=== PATIENT | female | born 1975 | race Caucasian/White ===

== ENCOUNTER 2017-02-17 18:14 | Inpatient (IN) ==
--- NOTE | 2017-02-17 19:56 | Emergency Department Note ---
Arrival - Arrival Chief Complaint: Fever Stated Complaint: kidney stones/fever ED Nursing Triage Note: C/o bilateral flank pain and fever-onset 3 days ago. States that she has several kidney stones. Mode of Arrival: Ambulatory Time Seen by Provider: 02/17/17 19:23 - History of Present Illness HPI Narrative: This is a 41-year-old white female with a history of migraine headaches, cholecystectomy in October 2016, type 2 diabetes, chronic recurrent kidney stones with previous lithotripsy who presents with 3 days of left flank pain reminiscent of a kidney stone and one day of fever 102 with dysuria. The patient has had no vomiting nor chills. Date of Last Menstrual Period: 2 weeks ago Allergies/Adverse Reactions: Allergies Allergy/AdvReac Type Severity Reaction Status Date / Time Penicillins Allergy Severe Unknown/Unable Verified 10/24/16 09:46 to obtain Home Medications: Home Medications Medication Instructions Recorded Confirmed Type Clorazepate [Tranxene] 3.75 mg PO BID PRN 10/02/14 02/17/17 History Dextroamphetamine/Amphetamine 20 mg PO BID@0700,1400 10/02/14 02/17/17 History [Adderall 10 mg Tablet] Ketorolac Tab [Toradol Tab] 10 mg PO Q6H PRN #20 tablet 10/13/16 02/17/17 Rx Escitalopram [Lexapro] 20 mg PO QAM 10/23/16 02/17/17 History metFORMIN [Glucophage] 850 mg PO DAILY W/BREAKFAST 10/23/16 02/17/17 History Review of System - Review of System Constitutional: Present: fever. Absent: chills Eyes: Absent: redness, vision change Head/Ears/Nose/Throat: Absent: epistaxis, nasal drainage Respiratory: Absent: respiratory distress, wheezing Cardiovascular: Absent: dyspnea on exertion, orthopnea Gastrointestinal: Absent: diarrhea, constipation, hematemesis Genitourinary female: Present: dysuria, frequency Musculoskeletal: Present: lower back pain. Absent: joint swelling, leg pain, neck pain Skin: Absent: change in color, pruritus Neurological: Absent: numbness, paresthesias, confusion Psychiatric: Absent: suicidal thoughts, homicidal thoughts Endocrine: Absent: heat intolerance, polydipsia Hematological/Lymphatic: Absent: easy bruising, lymphadenopathy Allergic/Immunologic: Absent: urticaria, itchy eyes Medical,Surgical,& Family Hx - Medical History Psychological: History of: Anxiety Disorders, ADHD, Depression Neurology: History of: Migraine No history of: Seizures HEENT: History of: Dental Problems (07/2016 Teeth Removed), HEENT Problems ( Sinusitis) Endocrine: History of: Diabetes Mellitus (NIDDM) (Dx 2017 Type II) Respiratory: No history of: Pneumonia (Pneum Vac Jan 2016), Respiratory Problems (Flu Vac Jun 2016) Genitourinary: History of: Kidney Stones Gastrointestinal: History of: GI Problems (N/V Abd Pain-Cholelithiasis) Other: History of: Anesthesia Reactions (Very Nauseated/Vomiting/Migraine Continuing Days past Anesthesia) - Surgical History Thoracic Surgeries: Surgical HX of;: Lithotripsy Abdominal Surgeries: Surgical HX of: Abdominal Surgery, Cholecystectomy Reproductive Surgeries: Surgical HX of;: Section (1994,2000,2002), Genitourinary Surgery, Gynecologic Surgery - Social History Smoking Status: Never smoker Frequency of Alcohol Use: None Type of Drug Use: None Exam Vital Signs: Vital Signs Temperature 102.8 F H 02/17/17 19:00 Pulse Rate 132 H 02/17/17 19:00 Respiratory Rate 17 02/17/17 19:00 Blood Pressure 140/87 02/17/17 19:00 O2 Sat by Pulse Oximetry 96 02/17/17 18:24 - General General appearance: alert - Eye Eye exam: Present: PERRL, EOMI - ENT ENT exam: Present: normal exam, normal oropharynx - Neck Neck exam: Present: normal inspection, full ROM - Chest Chest inspection: Present: normal inspection, symmetric chest wall rise - Respiratory Respiratory exam: Present: normal lung sounds bilaterally - Abdominal Exam Abdominal exam: Present: soft, normal bowel sounds - Extremities Exam Extremities exam: Present: normal inspection, full ROM - Back Exam Back exam: Present: normal inspection, full ROM. Absent: CVA tenderness (R), CVA tenderness (L) - Neurological Exam Neurological exam: Present: alert, oriented X3 - Psychiatric Psychiatric exam: Present: normal affect, normal mood - Skin Skin exam: Present: warm, dry Course Course Narrative: The patient has shaking chills fever or pyuria and a 5 mm left ureteral stone and elevated white count all of which seem to be consistent with pyelonephritis related to an obstructing ureteral stone therefore it seems reasonable patient can be admitted to the hospital for IV antibiotics and urology consultation. The case was discussed with Dr. Murillo the urologist who is going to see the woman in consultation. The case was also discussed with the hospitalist who agreed to admit the patient for fluid resuscitation and intravenous antibiotics as well as pain management Results - Labs CBC & BMP: 02/17/17 19:57 02/17/17 19:57 Disposition Clinical Impression: Pyelonephritis, Ureteral calculus, left Disposition: Still a Patient Additional Instructions: The patient has shaking chills fever or pyuria and a 5 mm left ureteral stone and elevated white count all of which seem to be consistent with pyelonephritis related to an obstructing ureteral stone therefore it seems reasonable patient can be admitted to the hospital for IV antibiotics and urology consultation. The case was discussed with Dr. Murillo the urologist who is going to see the woman in consultation. The case was also discussed with the hospitalist who agreed to admit the patient for fluid resuscitation and intravenous antibiotics as well as pain management
[2017-02-17] MEDS ORDERED: KETOROLAC 30 MG/1 ML VIAL IV STA (19:58)
[2017-02-17] MEDS ORDERED: cefTRIAXone 1,000 MG in SODIUM CHLORIDE 0.9% 100 ML IV STA (19:59)
[2017-02-17] MEDS ORDERED: SODIUM CHLORIDE 0.9% 1,000 ML IV STA ×2 (20:07→22:20)
[2017-02-17] MEDS ORDERED: SODIUM CHLORIDE 0.9% 100 ML IV ONE (20:12)
[2017-02-17] MEDS ORDERED: cefTRIAXone 1,000 MG VIAL ONE (20:12)
[2017-02-17] MEDS ORDERED: KETOROLAC 30 MG/1 ML VIAL ONE (20:12)
[2017-02-17 20:18] LABS: Basophils # 0.1 10*3/uL (0.0-0.2); Basophils % 0.3 % (0.0-0.8); Eosinophils % 0.1 % (0.00-10.9); Hematocrit 38.1 VOL% (35.7-47.0); Hemoglobin 13.2 GM/DL (12.0-16.0); Immature Granulocytes % 0.5 %; Immature Granulocytes Absolute 0.09 #; Lymphocytes # 1.3 10*3/uL (1.4-4.0); Lymphocytes % 7.8 % (21.3-54.2); Mean Corpuscular HGB Conc 34.6 GM/DL (32-36); Mean Corpuscular Hemoglobin 30 PG (27-34); Mean Corpuscular Volume 86.2 FL (87-102); Mean Platelet Volume 10.9 FL (9.6-12.0); Monocytes # 2.2 10*3/uL (0.11-0.8); Monocytes % 13.4 % (1.7-12.7); Neutrophils # 12.9 10*3/uL (1.4-7.4); Neutrophils % 77.9 % (38.7-73.9); Platelet Count 292 T/CUMM (130-400); Red Blood Count 4.42 MC/CUMM (3.8-5.5); Red Cell Distribution Width 12.2 % (9.3-17.3); White Blood Count 16.6 T/CUMM (4-12)
[2017-02-17 20:32] LABS: Albumin 3.7 G/DL (3.4-5.0); Calcium 9.1 MG/DL (8.5-10.1); Osmolality,Calculated 276.8 MOS/KG (273-304); Potassium 3.8 MMOL/L (3.5-5.1); Total Protein 7.2 G/DL (6.4-8.3)
[2017-02-17 20:33] LABS: Apearance,Urine CLOUDY (Clear); Bacteria,Urine Many /HPF (Few); Bilirubin,Urine Negative (Negative); Blood, Urine Small mg/dL (Negative); Glucose,Urine (UA) Negative (Negative); Ketones,Urine Negative (Negative); Mucus,Urine Few /LPF (Occasional); Nitrite,Urine Negative (Negative); Protein,Urine 100 MG/DL; RBC,Urine 42 /HPF (0-4); Squamous Epithelial Cell,Urine Few /HPF (0-10); Urine Color Yellow (Yellow); Urine Specific Gravity 1.013 (1.001-1.035); WBC,Urine 751 /HPF (0-6)
--- NOTE | 2017-02-17 20:52 | CT Report ---
CT abdomen without contrast February 17, 2017 Indication: Left flank pain with hematuria Comparison: October 10, 2016 Technique: Axial CT imaging of the abdomen is performed without intravenous and oral contrast. Findings: Cardiac and lung bases are within normal limits CT abdomen: The liver spleen pancreas and adrenal glands are unremarkable. No evidence of focal lesion is demonstrated in these solid organs. Gallbladder is surgically absent. Bilateral calyceal stones, nonobstructing. There is a 5.5 mm stone within the mid left ureter with moderate to severe hydronephrosis perinephric stranding and mild left nephromegaly. The bowel caliber is normal and no wall thickening or adjacent inflammatory change is seen. Appendix is normal. A few scattered colonic diverticula are noted. No evidence of free fluid or free air is present. Small fat-containing ventral hernia is noted just above the umbilicus. Impression: 1. Left obstructive uropathy with 5.5 mm stone within the mid ureter 2. Bilateral nonobstructing calyceal stones 8. Diverticulosis coli 4. Multiple fat-containing ventral hernia This CT exam was performed using one or more the following dose reduction techniques: Automated exposure control, adjustment of the MA and/or KV according to patient size, or use of iterative reconstruction technique. PROCEDURE INTERPRETED AT [facility] DEPARTMENT OF RADIOLOGY Final Report Signed by: Kirby Lambert
[2017-02-17] MEDS ORDERED: MORPHINE 2 MG/1 ML SYRINGE IV STA (22:20)
[2017-02-17] MEDS ORDERED: ONDANSETRON 4 MG/2 ML VIAL IV STA (22:21)
[2017-02-17] MEDS ORDERED: ONDANSETRON 4 MG/2 ML VIAL ONE (22:25)
[2017-02-17] MEDS ORDERED: MORPHINE 2 MG/1 ML SYRINGE ONE (22:26)
--- NOTE | 2017-02-17 23:05 | Hospitalist History & Physical ---
History of Present Illness Chief complaint: fever and left flank pain History of present illness: Ms. Duenas is a 41 year old female who presents from her preceptor class here to the ER because her preceptor noticed she did not look well. She checked her temperature, and it was 102.4. Patient also has been having 3 days of some left flank pain she describes as constant pressure. Now, it feels like spasms. She also notes some chills that started today. She denies any n/v/diarrhea/ decreased oral intake. She states that she has a history of recurrent nephrolithiasis and has had 7 lithotripsy procedures. She sees Dr. Rossi of urology but missed her December 2016 appointment. While in the ER, blood and urine cultures were taken. She was started on IVFs and given rocephin and morphine. She notes that pain has improved. Home Medications Medication Instructions Recorded Confirmed Type Clorazepate [Tranxene] 3.75 mg PO BID PRN 10/02/14 02/17/17 History Dextroamphetamine/Amphetamine 20 mg PO BID@0700,1400 10/02/14 02/17/17 History [Adderall 10 mg Tablet] Ketorolac Tab [Toradol Tab] 10 mg PO Q6H PRN #20 tablet 10/13/16 02/17/17 Rx Escitalopram [Lexapro] 20 mg PO QAM 10/23/16 02/17/17 History metFORMIN [Glucophage] 850 mg PO DAILY W/BREAKFAST 10/23/16 02/17/17 History Allergies Allergy/AdvReac Type Severity Reaction Status Date / Time Penicillins Allergy Severe Unknown/Unable Verified 10/24/16 09:46 to obtain Medical,Surgical,& Family Hx - Medical History Psychological: History of: Anxiety Disorders, ADHD, Depression Neurology: History of: Migraine No history of: Seizures HEENT: History of: Dental Problems (07/2016 Teeth Removed), HEENT Problems ( Sinusitis) Endocrine: History of: Diabetes Mellitus (NIDDM) (Dx 2017 Type II) Respiratory: No history of: Pneumonia (Pneum Vac Jan 2016), Respiratory Problems (Flu Vac Jun 2016) Genitourinary: History of: Kidney Stones Gastrointestinal: History of: GI Problems (N/V Abd Pain-Cholelithiasis) Other: History of: Anesthesia Reactions (Very Nauseated/Vomiting/Migraine Continuing Days past Anesthesia) - Surgical History Thoracic Surgeries: Surgical HX of;: Lithotripsy Abdominal Surgeries: Surgical HX of: Abdominal Surgery, Cholecystectomy Reproductive Surgeries: Surgical HX of;: Section (1994,2000,2002), Genitourinary Surgery, Gynecologic Surgery - Social History Smoking Status: Never smoker Frequency of Alcohol Use: None Type of Drug Use: None 12 point system: reviewed and no additional remarkable complaints except as stated (plus history of DM but does not check her sugars; per pateint, hba1c 3 months ago was 7.1) Exam - Constitutional Vitals: Period Temp Pulse Resp BP Sys/Rayo Pulse Ox Last 24 Hr 102.8 F-102.8 F 132-132 17-18 140-140/87-87 96 General appearance: mild distress (mild painful distress, relieved with morphine ), over weight - Head Head exam: Present: normal inspection, atraumatic - Eye Eye exam: Present: EOMI, conjunctival injection Pupils: Present: SERGEY - ENT ENT exam: Present: normal oropharynx - Neck Neck exam: Absent: thyromegaly - Respiratory Respiratory exam: Present: clear to auscultation bilaterally. Absent: rales, rhonchi, wheezes - Cardiovascular Cardiovascular exam: Present: tachycardia (regular rhythm) - GI/Abdominal GI/Abdominal exam: Present: normal bowel sounds, tenderness (left flank tenderness; no peritoneal signs), soft. Absent: distended - Extremities Exam Extremities exam: Present: full ROM. Absent: edema - Neurological Exam Neurological exam: Present: alert, oriented X3 - Psychiatric Psychiatric exam: Present: anxious - Skin Skin exam: Present: normal color, warm, dry Results - Labs CBC & BMP: 02/17/17 19:57 02/17/17 19:57 Labs: UA: large LE - Impressions Patient is a 41 yo female admitted for acute pyelonephritis likely 2nd to left obstructive ureteral stone Active Issues: 1. Sepsis, given tachycardia, fever, and leukocytosis. Secondary to acute pyelonephritis 2. Acute pyelonephritis 3. Left obstructive uropathy 4. History of recurrent nephrolithiasis 5. Comorbid conditions: anxiety, depression, DM Plan: admit; consult urology; start aztreonam (patient with PCN allergy. States she was hospitalized for 30 days because of anaphylaxis at age 7. No other information is known about this. She states her mother when patient was 9. So, information is limited); monitor UOP; IVFs, control pain and fevers; monitor h/h while on toradol; anti emetics prn; await results of blood and urine cultures; check lactic acid; monitor leukocytosis; obtain EKG and chest x- ray; check hba1c; control sugars; hold metformin; restart home medications as appropriate. DVT prophalaxis. The plan of care may be modified as more information becomes available. - Diagnostic Findings Procedure: CT Abdomen and Pelvis: report reviewed by me (left obstructive uropathy with 5.5 mm stone in mid ureter with moderate to severe hydronephrosis. Perinephric stranding)
[2017-02-17] MEDS ORDERED: DEXTROSE 50% 25 GM/50 ML SYRINGE IV PRN (23:37)
[2017-02-17] MEDS ORDERED: GLUCAGON 1 MG VIAL IM PRN (23:37)
[2017-02-17] MEDS ORDERED: DEXTROSE 50% 25 GM/50 ML VIAL IV PRN (23:38)
[2017-02-18 00:10] LABS: Calcium 8.1 MG/DL (8.5-10.1); Lactic Acid 1.2 MMOL/L (0.4-2.0); Magnesium 1.8 MG/DL (1.8-2.4); Osmolality,Calculated 278.5 MOS/KG (273-304); Potassium 3.7 MMOL/L (3.5-5.1)
[2017-02-18] MEDS ORDERED: DIAZEPAM 2 MG TABLET ONE (00:27)
[2017-02-18] MEDS: SODIUM CHLORIDE 0.9% 1,000 ML IV SCH ×4 (00:29→21:26)
[2017-02-18] MEDS: DIAZEPAM 2 MG TABLET PO PRN (00:29)
[2017-02-18] MEDS ORDERED: ENOXAPARIN 40 MG/0.4 ML SYRINGE ONE (00:32)
[2017-02-18] MEDS: ENOXAPARIN 40 MG/0.4 ML SYRINGE SUBCUT SCH ×2 (00:36→23:58)
[2017-02-18] MEDS: AZTREONAM 1,000 MG in SODIUM CHLORIDE 0.9% 100 ML IV SCH ×3 (00:36→16:35)
[2017-02-18 04:41] LABS: Basophils % 0.2 % (0.0-0.8); Eosinophils % 0.1 % (0.00-10.9); Hematocrit 32.6 VOL% (35.7-47.0); Hemoglobin 11.4 GM/DL (12.0-16.0); Immature Granulocytes % 0.5 %; Immature Granulocytes Absolute 0.07 #; Lymphocytes % 6.3 % (21.3-54.2); Mean Corpuscular Hemoglobin 31 PG (27-34); Mean Corpuscular Volume 87.2 FL (87-102); Mean Platelet Volume 10.7 FL (9.6-12.0); Monocytes # 1.8 10*3/uL (0.11-0.8); Monocytes % 11.9 % (1.7-12.7); Neutrophils # 12.4 10*3/uL (1.4-7.4); Platelet Count 211 T/CUMM (130-400); Red Blood Count 3.74 MC/CUMM (3.8-5.5); Red Cell Distribution Width 12.3 % (9.3-17.3); White Blood Count 15.3 T/CUMM (4-12)
[2017-02-18] MEDS: ONDANSETRON 4 MG/2 ML VIAL IV PRN ×3 (06:20→20:31)
[2017-02-18] MEDS: MORPHINE 2 MG/1 ML SYRINGE IV PRN ×3 (06:23→20:33)
--- NOTE | 2017-02-18 06:43 | Urology Consultation ---
Assessment and Plan (1) Pyelonephritis Status: Acute Assessment and plan: Left pyelonephritis with obstructing stone Urosepsis/Sirs with hypotension, tachycardia, leukocytosis, fever Agree with IV antibiotics: Started on aztreonam and received Rocephin Urine culture and blood cultures to be followed up: We will need to adjust cultures pending sensitivities Interventional radiology consult for left PCN placement Current Visit: Yes (2) Ureteral calculus, left Status: Acute Assessment and plan: Obstructing left ureteral stone Due to her infection, I recommended she have this renal unit drained. I have offered ureteral stent placement this morning. She is very afraid due to her prior bad experience. She had significant hypotension with anesthesia, and "they were afraid that they lost her". We have discussed an alternative due to the urosepsis of percutaneous nephrostomy tube placement. She would prefer this. Interventional radiology consult placed for left PCN. She understands she will need eventual internalization and management of her stones. She prefers for Dr. Sarath Rossi to do this. Current Visit: Yes (3) Diabetes mellitus Status: Chronic Assessment and plan: Management per hospitalist. Due to her being diabetic, this makes drainage of the kidney more urgent. Current Visit: Yes Qualifiers: Diabetes mellitus type: type 2 Diabetes mellitus complication status: without complication (4) Hydronephrosis of left kidney Status: Acute Assessment and plan: Due to obstructing left ureteral stone Needs a drainage of this renal unit. Interventional radiology consult placed. Current Visit: Yes History of Present Illness - Data of Consult Patient: known to practice within the last 3 years Consult date: 02/17/17 Requesting Physician: Kodak Mayo - Consult Narrative History of present illness: Ms. Duenas is a 41 year old female who was admitted overnight with left pyelonephritis and obstructing left mid ureteral stone. She is diabetic, and has evidence of urosepsis. She has been tachycardic in the 110's, febrile to greater than 102, and a leukocytosis of greater than 16,000 on admission. She is having some left flank pain. She has a long-standing history of stones. She reports onset of pain 3 days ago, and this is persistently gotten worse. Describes fevers since yesterday. No significant nausea vomiting. She does have a history of multiple lithotripsies, and stone disease since 14 years of age. She is followed by Dr. Sarath Rossi. She had a previous ureteral stent placement by another urologist, and she had significant complications. She is very anxious, and she does not want a stent placement by anyone besides Dr. Rossi. She reports she has significant hypotension, and "severe problems" with her previous stent placement. This was performed at another hospital. CC: Kodak Mayo MD; left pyelonephritis with left ureteral stone - Home Medications and Allergies Home Medications: Home Medications Medication Instructions Recorded Confirmed Type Clorazepate [Tranxene] 3.75 mg PO BID PRN 10/02/14 02/18/17 History Dextroamphetamine/Amphetamine 20 mg PO BID@0700,1400 10/02/14 02/18/17 History [Adderall 10 mg Tablet] Ketorolac Tab [Toradol Tab] 10 mg PO Q6H PRN #20 tablet 10/13/16 02/18/17 Rx Escitalopram [Lexapro] 20 mg PO QAM 10/23/16 02/18/17 History metFORMIN [Glucophage] 850 mg PO DAILY W/BREAKFAST 10/23/16 02/18/17 History Ondansetron Tab [Zofran Tab] 4 mg PO Q6HR PRN 02/18/17 02/18/17 History Allergies/Adverse Reactions: Allergies Allergy/AdvReac Type Severity Reaction Status Date / Time Penicillins Allergy Severe Unknown/Unable Verified 10/24/16 09:46 to obtain Medical,Surgical,& Family Hx - Medical History Psychological: History of: Anxiety Disorders, ADHD, Depression Neurology: History of: Migraine No history of: Seizures HEENT: History of: Dental Problems (07/2016 Teeth Removed), HEENT Problems ( Sinusitis) Endocrine: History of: Diabetes Mellitus (NIDDM) (Dx 2017 Type II) Respiratory: No history of: Pneumonia (Pneum Vac Jan 2016), Respiratory Problems (Flu Vac Jun 2016) Genitourinary: History of: Kidney Stones Gastrointestinal: History of: GI Problems (N/V Abd Pain-Cholelithiasis) Other: History of: Anesthesia Reactions (Very Nauseated/Vomiting/Migraine Continuing Days past Anesthesia) - Surgical History Thoracic Surgeries: Surgical HX of;: Lithotripsy Abdominal Surgeries: Surgical HX of: Abdominal Surgery, Cholecystectomy Reproductive Surgeries: Surgical HX of;: Section (1994,2000,2002), Genitourinary Surgery, Gynecologic Surgery - Social History Smoking Status: Never smoker Frequency of Alcohol Use: None Type of Drug Use: None 12 point system: reviewed and no additional remarkable complaints except as stated - Constitutional Constitutional: Present: chills, fatigue, fever(s) - Cardiovascular Cardiovascular: Present: palpitations. Absent: orthopnea - Respiratory Respiratory: Absent: cough, wheezing - Gastrointestinal Gastrointestinal: Present: abdominal pain (Left lower quadrant) - Genitourinary Genitourinary: Present: flank pain (Left flank). Absent: hematuria - Psychiatric Psychiatric: Present: anxiety - Hematologic/Lymphatic Hematologic/Lymphatic: Absent: easy bleeding, easy bruising Exam - Constitutional Vitals: Period Temp Pulse Resp BP Sys/Rayo Pulse Ox Last 24 Hr 99.0 F-102.8 F 100-132 13-20 103-157/62-87 95-99 General appearance: mild distress - Head Head exam: Present: normocephalic, atraumatic - Eye Eye exam: Present: EOMI. Absent: scleral icterus - ENT ENT exam: Present: normal oropharynx - Neck Neck exam: Present: normal inspection - Respiratory Respiratory exam: Absent: accessory muscle use, decreased breath sounds, stridor - Cardiovascular Cardiovascular exam: Present: regular rate and rhythm. Absent: JVD - GI/Abdominal GI/Abdominal exam: Present: normal bowel sounds, tenderness (Mild left lower quadrant and left flank pain), soft, other (Obese abdomen, prior scar noted.). Absent: rebound - Genitourinary Genitourinary: external genitalia normal - Extremities Exam Extremities exam: Present: normal capillary refill. Absent: edema - Back Exam Back exam: Present: CVA tenderness (L). Absent: CVA tenderness (R) - Neurological Exam Neurological exam: Present: alert, oriented X3 - Psychiatric Psychiatric exam: Present: normal affect, anxious - Skin Skin exam: Present: warm, dry Results - Labs CBC & BMP: 02/18/17 03:43 02/17/17 23:31 Lab Results: I have reviewed the past 24 hour labs - Diagnostic Findings Procedure: CT Abdomen and Pelvis: image reviewed by me, report reviewed by me ( Severe left hydroureteronephrosis down to left mid ureter with obstructing 5 mm stone)
[2017-02-18] MEDS ORDERED: LEVOFLOXACIN INJ 500 MG in PREMIX 1 EACH IV ONE ×2 (07:09→09:05)
--- NOTE | 2017-02-18 07:12 | Event Note ---
I consulted interventional radiology. I am told that we do not have interventional radiology available. There is no radiologist to place a PCN. I discussed this with the patient. She is very afraid, but I have explained to her the need to urgently drain her renal unit. She understands she could get more ill without intervention. I am posted her for cystoscopy with stent placement urgently. Hopefully we will be doing this within the next 1-2 hours.
[2017-02-18] MEDS ORDERED: SCOPOLAMINE 1.5 MG PATCH TRANSDERM ONE ×2 (08:04→08:05)
[2017-02-18] MEDS ORDERED: MIDAZOLAM 2 MG/2 ML VIAL IV ONE (08:09)
[2017-02-18] MEDS ORDERED: LIDOCAINE 100 MG/5 ML SYRINGE ONE (08:38)
[2017-02-18] MEDS ORDERED: PROPOFOL 200 MG/20 ML VIAL IV ONE (08:38)
[2017-02-18] MEDS ORDERED: PHENYLEPHRINE 1 MG/10 ML SYRINGE IV ONE (08:38)
[2017-02-18] MEDS ORDERED: ONDANSETRON 4 MG/2 ML VIAL ONE (08:38)
[2017-02-18] MEDS: INSULIN LISPRO 100 UNIT/ML SUBCUT SCH ×4 (08:44→22:37)
--- NOTE | 2017-02-18 09:22 | Operative Note ---
Date of procedure: 02/18/17 Pre-op diagnosis: Left ureteral stone with hydronephrosis; Left Pyelonephritis Post-op diagnosis: same Procedure: This a 41-year-old female admitted with left pyelonephritis after a several day history of pain. She was noted to have a leukocytosis over 16,000, febrile to 102, and symptomatic. On CT, she was demonstrated to have a left mid ureteral obstructing stone with proximal hydroureteronephrosis. She is diabetic. We discussed that she needs to have drainage of this renal unit. After initially wanting a PCN, she has elected for stent placement. There was some confusion that no interventional radiology was available. We do in fact have an interventional radiologist available. I spoke with him, but he feels that he would need general anesthesia for the PCN. We have discussed that she may become hypotensive in either situation. Due to her large size, he feels that he would need endotracheal tube intubation with her going prone. I discussed this with her, and she has agreed to proceed with stent. After informed consent, the patient brought to the operating room. She was placed supine on operating table. Proper monitoring devices and SCDs were in place and functioning prior to start of the case. She received preoperative antibiotics prior to start of the case. She was sedated and then had LMA placement with general anesthesia. She was moved in the dorsal lithotomy position. She was prepped and draped in standard sterile fashion. Timeout was performed, and then a 22 [place] rigid cystoscope was used to intubate the urethral meatus. The bladder was surveyed and there was significant debris with induration, but no significant other lesions noted. The left UO was somewhat edematous with some mild purulent drainage. A 0.035 sensor wire was passed up the left UO. This was curled in the upper pole of the kidney. A 6 [place] by 24 cm double-J ureteral stent was placed easily. A Hu catheter was placed at the conclusion of the case, and a urine culture was obtained. The patient tolerated procedure well, she was extubated and sent to recovery room. Implants: 6 [place] by 24 cm double-J ureteral stent, left side Anesthesia: GETA Surgeon / Physician: Clint Murillo Estimated blood loss: none Specimens: other (Urine culture) Condition: stable Disposition: floor Results - Labs CBC & BMP: 02/18/17 03:43 02/17/17 23:31 Lab Results: I have reviewed the past 24 hour labs - Diagnostic Findings Procedure: KUB x-ray: image reviewed by me (KUB obtained Intra-Op, difficulty seeing stone fragments on plain film), CT Abdomen and Pelvis: image reviewed by me, report reviewed by me, X-ray: image reviewed by me Discharge Plan - Discharge Medications No Action Clorazepate [Tranxene] 3.75 mg PO BID PRN PRN Reason: Anxiety Dextroamphetamine/Amphetamine [Adderall 10 mg Tablet] 20 mg PO BID@0700,1400 Ketorolac Tab [Toradol Tab] 10 mg PO Q6H PRN #20 tablet PRN Reason: Headache Escitalopram [Lexapro] 20 mg PO QAM Ondansetron Tab [Zofran Tab] 4 mg PO Q6HR PRN PRN Reason: Nausea metFORMIN [Glucophage] 850 mg PO DAILY W/BREAKFAST - Follow Up or Referral - Forms/Instructions Discharge: Quality Measures - VTE Contraindication No Overlap Therapy: Surgical Procedure (SCDs used with low risk of clot)
[2017-02-18] MEDS ORDERED: DEXTROSE 50% 25 GM/50 ML VIAL IV PRN (09:24)
[2017-02-18] MEDS: PANTOPRAZOLE 40 MG VIAL IV SCH (10:20)
[2017-02-18 10:23] LABS: Apearance,Urine CLEAR (Clear); Bilirubin,Urine Negative (Negative); Blood, Urine Moderate mg/dL (Negative); Glucose,Urine (UA) Negative (Negative); Ketones,Urine Negative (Negative); Mucus,Urine Occasional /LPF (Occasional); Nitrite,Urine Negative (Negative); Protein,Urine Negative; RBC,Urine 9 /HPF (0-4); Squamous Epithelial Cell,Urine Occasional /HPF (0-10); Urine Color Straw (Yellow); Urine Specific Gravity 1.003 (1.001-1.035); Urine Urobilinogen < 2.0 EU/DL (0.2-1.0); WBC,Urine 16 /HPF (0-6)
[2017-02-18] MEDS: KETOROLAC 15 MG/1 ML VIAL IV PRN (10:26)
--- NOTE | 2017-02-18 10:53 | XRay Report ---
Portable chest February 17, 2017 at 2319 hours Indication: Shortness of breath Comparison: No relevant comparisons Findings: Cardiomediastinal contours are normal. Lungs are clear bilaterally. No acute osseous abnormalities. Visualized upper abdomen demonstrates no acute pathology. Impression: Normal chest PROCEDURE INTERPRETED AT [facility] DEPARTMENT OF RADIOLOGY Final Report Signed by: Kirby Lambert
--- NOTE | 2017-02-18 13:03 | Anesthesia Post-Op ---
Anesthesia Post OP - Post Ansesthetic Evaluation Patient seen in post op: Yes Resp: within normal limits CV: within normal limits Mental: within normal limits Temp: within normal limits [id number]: within normal limits Nausea and Vomiting: within normal limits Pain: within normal limits
[2017-02-18] MEDS ORDERED: SEVOFLURANE 1 UNIT/15 MINUTE INH ONE (13:51)
[2017-02-18] MEDS ORDERED: MIDAZOLAM 2 MG/2 ML VIAL ONE (13:52)
[2017-02-18] MEDS ORDERED: fentaNYL 100 MCG/2 ML VIAL ONE (13:52)
[2017-02-18] MEDS: ACETAMINOPHEN 325 MG TABLET PO PRN ×2 (16:34→22:09)
--- NOTE | 2017-02-18 16:43 | Hospitalist Progress Note ---
Hospitalist: Subjective Interval history: 41-year-old white female admitted to the hospital for treatment of acute pyelonephritis. Exam - Constitutional Vitals: Period Temp Pulse Resp BP Sys/Rayo Pulse Ox Last 24 Hr 97.5 F-102.8 F 88-132 13-20 93-157/53-87 94-100 Exam: General: No Acute Distress HEENT: Normocephalic, atraumatic, Extra ocular movements intact Neck: Supple, No JVD Chest: Clear to auscultation B/L CV: S1 + S2 audible without murmur, gallop or rub Abd: soft, NT, Non-distended, BS + Ext: No edema Skin: No purpura, bruising or rash Rheumatologic: No Joint deformities Neurologic: Strength 5/5 all extremities, no gross sensory deficits Results - Labs CBC & BMP: 02/18/17 03:43 02/17/17 23:31 - Impressions Assessment and Plan: Acute pyelonephritis with sepsis, POA Status: Acute Assessment and plan: Continue IV aztreonam. Urine cultures growing gram-negative negative hospital follow for sensitivity Current Visit: Yes Left obstructive uropathy due to ureteral calculus Status: Acute Assessment and plan: She had left hydronephrosis due to obstructing left ureteral stone. She is status post stent placement by urology Current Visit: Yes Diabetes mellitus Status: Chronic Assessment and plan: Controlled, hemoglobin A1c was 6.9 Current Visit: Yes DVT prophylaxis with Lovenox Quality Measures - VTE Contraindication No Overlap Therapy: Surgical Procedure (SCDs used with low risk of clot)
--- NOTE | 2017-02-18 17:01 | Fluoroscopy Report ---
Retrograde pyelogram May 20, 2017 and 1120 hours Indication: Stent placement Comparison images from CT performed previous day at 1351 hours Findings: Utilizing standard fluoroscopy, AP abdomen obtained pre and post stent placement. Left ureteral stent appears in satisfactory position. Bowel gas pattern is normal. No intraperitoneal air. No demonstratable stones by limited study. Impression Technically successful left retrograde urethrogram with ureteral stent placement. PROCEDURE INTERPRETED AT [facility] DEPARTMENT OF RADIOLOGY Final Report Signed by: Kirby Lambert
[2017-02-18] MEDS: TAMSULOSIN 0.4 MG CAPSULE PO SCH (21:23)
[2017-02-19] MEDS: AZTREONAM 1,000 MG in SODIUM CHLORIDE 0.9% 100 ML IV SCH ×3 (00:03→16:18)
[2017-02-19] MEDS: SODIUM CHLORIDE 0.9% 1,000 ML IV SCH ×2 (05:56→15:00)
[2017-02-19] MEDS: KETOROLAC 15 MG/1 ML VIAL IV PRN ×2 (08:58→15:15)
[2017-02-19] MEDS: ACETAMINOPHEN 325 MG TABLET PO PRN ×2 (08:58→16:22)
[2017-02-19] MEDS: DIAZEPAM 2 MG TABLET PO PRN ×2 (08:58→21:44)
[2017-02-19] MEDS: PANTOPRAZOLE 40 MG VIAL IV SCH (08:58)
[2017-02-19] MEDS: INSULIN LISPRO 100 UNIT/ML SUBCUT SCH ×4 (08:59→21:44)
--- NOTE | 2017-02-19 09:51 | Urology Progress Note ---
Assessment and Plan - Time spent with patient Time spent with patient: Less than 30 minutes (1) Pyelonephritis Status: Acute Assessment and plan: Left pyelonephritis with obstructing stone Urosepsis/Sirs with hypotension, tachycardia, leukocytosis, fever: Improving Agree with IV antibiotics: Started on aztreonam and received Rocephin Urine culture and blood cultures to be followed up: We will need to adjust cultures pending [id number]-uvqy-[id number] rods on urine culture, blood cultures without growth Current Visit: Yes (2) Ureteral calculus, left Status: Acute Assessment and plan: Obstructing left ureteral stone Left ureteral stent placed yesterday. She is having a lot of urine output. Her urine is clear. She has had some stone fragments passed. She understands she will need eventual management of her stones. She will follow up with Dr. Sarath Rossi to do this. Current Visit: Yes (3) Diabetes mellitus Status: Chronic Assessment and plan: Management per hospitalist. Due to her being diabetic, this made drainage of the kidney more urgent. Current Visit: Yes Qualifiers: Diabetes mellitus type: type 2 Diabetes mellitus complication status: without complication (4) Hydronephrosis of left kidney Status: Acute Assessment and plan: Due to obstructing left ureteral stone, postop day 1 status post left ureteral stent placement We will remove Hu this morning. Pyridium 200 mg 3 times daily for 3 days to help with dysuria. Continue antibiotics per cultures. Dr. Rossi will return tomorrow, and I will notify him that this patient is in the hospital. Current Visit: Yes Urology - PN: Subj Interval history: She complains of generalized fatigue. Nurses reports that she has complained of headache. She reports that she is having some burning with Hu catheter in place. She denies any high fevers or shaking chills. No vomiting. She reports it is difficult for her to cough. She denies productive cough. Exam - Constitutional Vitals: Period Temp Pulse Resp BP Sys/Rayo Pulse Ox Last 24 Hr 97.5 F-102.4 F 73-99 16-20 96-119/52-60 91-98 General appearance: no acute distress - Head Head exam: Present: normocephalic, atraumatic - Eye Eye exam: Absent: periorbital swelling - ENT ENT exam: Present: normal oropharynx - Neck Neck exam: Present: normal inspection. Absent: lymphadenopathy - Respiratory Respiratory exam: Present: decreased breath sounds. Absent: accessory muscle use, wheezes - Cardiovascular Cardiovascular exam: Present: regular rate and rhythm. Absent: JVD - GI/Abdominal GI/Abdominal exam: Present: tenderness (Mild left side), soft. Absent: rebound - Genitourinary Genitourinary: external genitalia normal (Hu catheter draining clear, rica urine) - Extremities Exam Extremities exam: Present: normal inspection - Back Exam Back exam: Present: CVA tenderness (L) (Mild). Absent: CVA tenderness (R) - Neurological Exam Neurological exam: Present: alert, oriented X3 - Psychiatric Psychiatric exam: Present: normal affect, normal mood - Skin Skin exam: Present: warm, dry Results - Labs CBC & BMP: 02/18/17 03:43 02/17/17 23:31 Lab Results: I have reviewed the past 24 hour labs - Diagnostic Findings Procedure: CT Abdomen and Pelvis: image reviewed by me, report reviewed by me
[2017-02-19] MEDS: PHENAZOPYRIDINE 95 MG TABLET PO SCH ×2 (12:15→16:18)
--- NOTE | 2017-02-19 16:39 | Hospitalist Progress Note ---
Hospitalist: Subjective Interval history: 41-year-old white female admitted to the hospital for treatment of acute pyelonephritis. She reports decreased appetite. Exam - Constitutional Vitals: Period Temp Pulse Resp BP Sys/Rayo Pulse Ox Last 24 Hr 96.7 F-101.4 F 73-88 16-19 103-119/52-56 89-96 Exam: General: No Acute Distress HEENT: Normocephalic, atraumatic, Extra ocular movements intact Neck: Supple, No JVD Chest: Clear to auscultation B/L CV: S1 + S2 audible without murmur, gallop or rub Abd: soft, NT, Non-distended, BS + Ext: No edema Skin: No purpura, bruising or rash Rheumatologic: No Joint deformities Neurologic: Strength 5/5 all extremities, no gross sensory deficits Results - Labs CBC & BMP: 02/18/17 03:43 02/17/17 23:31 - Impressions Assessment and Plan: Klebsiella acute pyelonephritis with sepsis, POA Status: Acute Assessment and plan: Continue IV aztreonam. Urine cultures growing gram-negative negative hospital follow for sensitivity Current Visit: Yes Left obstructive uropathy due to ureteral calculus Status: Acute Assessment and plan: She had left hydronephrosis due to obstructing left ureteral stone. She is status post stent placement by urology Current Visit: Yes Diabetes mellitus Status: Chronic Assessment and plan: Controlled, hemoglobin A1c was 6.9 Current Visit: Yes DVT prophylaxis with Lovenox Quality Measures - VTE Contraindication No Overlap Therapy: Surgical Procedure (SCDs used with low risk of clot)
[2017-02-19] MEDS: TAMSULOSIN 0.4 MG CAPSULE PO SCH (21:44)
[2017-02-19] MEDS: MORPHINE 2 MG/1 ML SYRINGE IV PRN (21:50)
[2017-02-19] MEDS: ONDANSETRON 4 MG/2 ML VIAL IV PRN (21:53)
[2017-02-20] MEDS: ENOXAPARIN 40 MG/0.4 ML SYRINGE SUBCUT SCH ×2 (00:13→23:56)
[2017-02-20] MEDS: AZTREONAM 1,000 MG in SODIUM CHLORIDE 0.9% 100 ML IV SCH ×4 (00:26→23:58)
[2017-02-20] MEDS: SODIUM CHLORIDE 0.9% 1,000 ML IV SCH ×4 (00:27→16:32)
[2017-02-20 07:31] LABS: Basophils % 0.4 % (0.0-0.8); Eosinophils # 0.1 10*3/uL (0.0-0.87); Eosinophils % 1.7 % (0.00-10.9); Hematocrit 30.2 VOL% (35.7-47.0); Hemoglobin 10.1 GM/DL (12.0-16.0); Immature Granulocytes % 0.5 %; Immature Granulocytes Absolute 0.04 #; Lymphocytes # 1.4 10*3/uL (1.4-4.0); Lymphocytes % 18.5 % (21.3-54.2); Mean Corpuscular HGB Conc 33.4 GM/DL (32-36); Mean Corpuscular Hemoglobin 30 PG (27-34); Mean Corpuscular Volume 89.3 FL (87-102); Mean Platelet Volume 10.9 FL (9.6-12.0); Monocytes % 13.2 % (1.7-12.7); Neutrophils # 5.1 10*3/uL (1.4-7.4); Neutrophils % 65.7 % (38.7-73.9); Platelet Count 211 T/CUMM (130-400); Red Blood Count 3.38 MC/CUMM (3.8-5.5); Red Cell Distribution Width 12.2 % (9.3-17.3); White Blood Count 7.7 T/CUMM (4-12)
[2017-02-20 08:06] LABS: Calcium 7.9 MG/DL (8.5-10.1); Osmolality,Calculated 280.1 MOS/KG (273-304); Potassium 3.8 MMOL/L (3.5-5.1)
[2017-02-20] MEDS: INSULIN LISPRO 100 UNIT/ML SUBCUT SCH ×4 (08:53→23:23)
--- NOTE | 2017-02-20 09:18 | Urology Progress Note ---
Urology - PN: Subj Interval history: Patient well known to me with stone history. She presented with a septic stone. She was stented she is feeling some better. She has not eaten anything yet. She seems a little wet I will check a chest x-ray. She needs to get up and ambulate start eating solid food may be home tomorrow. Exam - Constitutional Vitals: Period Temp Pulse Resp BP Sys/Rayo Pulse Ox Last 24 Hr 96.7 F-99.2 F 73-84 16-20 103-122/52-75 89-97 Results - Labs CBC & BMP: 02/20/17 06:03 02/20/17 06:03
[2017-02-20] MEDS: PHENAZOPYRIDINE 95 MG TABLET PO SCH ×3 (09:44→16:55)
[2017-02-20] MEDS: PANTOPRAZOLE 40 MG VIAL IV SCH (09:44)
[2017-02-20] MEDS: ALBUTEROL/IPRATROPIUM 3 ML NEB RESP TX SCH ×4 (10:45→23:28)
--- NOTE | 2017-02-20 10:47 | XRay Report ---
2 view chest February 20, 2017 Indication: Tachycardia Comparison images dated February 17, 2017 Findings: Developing central interstitial opacities with perihilar haziness. Heart size remains normal. No effusions. No acute osseous abnormalities. Impression: Developing perihilar and central linear and hazy interstitial opacities. Differential considerations include interstitial edema versus diffuse inflammatory process PROCEDURE INTERPRETED AT [facility] DEPARTMENT OF RADIOLOGY Final Report Signed by: Kirby Lambert
[2017-02-20] MEDS ORDERED: FUROSEMIDE 40 MG/4 ML VIAL IV ONE (17:50)
--- NOTE | 2017-02-20 17:54 | Hospitalist Progress Note ---
Hospitalist: Subjective Interval history: 41-year-old white female admitted to the hospital for treatment of acute pyelonephritis. She reports decreased appetite. She is overall feeling better but has developed some atelectasis and hypoxemia. IV fluids have been discontinued and she received IV Lasix and will check chest x-ray again in the morning. Exam - Constitutional Vitals: Period Temp Pulse Resp BP Sys/Rayo Pulse Ox Last 24 Hr 97.3 F-98.4 F 66-95 14-20 104-122/52-75 90-100 Exam: General: No Acute Distress HEENT: Normocephalic, atraumatic, Extra ocular movements intact Neck: Supple, No JVD Chest: Clear to auscultation B/L CV: S1 + S2 audible without murmur, gallop or rub Abd: soft, NT, Non-distended, BS + Ext: No edema Skin: No purpura, bruising or rash Rheumatologic: No Joint deformities Neurologic: Strength 5/5 all extremities, no gross sensory deficits Results - Labs CBC & BMP: 02/20/17 06:03 02/20/17 06:03 - Impressions Assessment and Plan: Klebsiella acute pyelonephritis with sepsis, POA Status: Acute Assessment and plan: Continue IV aztreonam. Urine cultures growing gram-negative negative hospital follow for sensitivity Current Visit: Yes Left obstructive uropathy due to ureteral calculus Status: Acute Assessment and plan: She had left hydronephrosis due to obstructing left ureteral stone. She is status post stent placement by urology Current Visit: Yes Diabetes mellitus Status: Chronic Assessment and plan: Controlled, hemoglobin A1c was 6.9 Current Visit: Yes Acute hypoxemic respiratory failure likely due to atelectasis, will repeat a chest x-ray in the morning as now she is ambulating better DVT prophylaxis with Lovenox Quality Measures - VTE Contraindication No Overlap Therapy: Surgical Procedure (SCDs used with low risk of clot)
[2017-02-20] MEDS: TAMSULOSIN 0.4 MG CAPSULE PO SCH (21:09)
[2017-02-20] MEDS: DIAZEPAM 2 MG TABLET PO PRN (21:09)
[2017-02-20] MEDS: KETOROLAC 15 MG/1 ML VIAL IV PRN (21:12)
[2017-02-20] MEDS: ACETAMINOPHEN 325 MG TABLET PO PRN (21:15)
[2017-02-21] MEDS: ALBUTEROL/IPRATROPIUM 3 ML NEB RESP TX SCH ×3 (03:00→10:52)
--- NOTE | 2017-02-21 07:29 | XRay Report ---
Exam: XR chest 2V Date: 02/21/2017 4:00 AM Indication: Rales and crackles in the lungs, shortness of breath dyspnea Comparison: 02/20/2017 Technical: PA lateral Findings: Low volume effusion left base with small effusion right base with underlying cardiomegaly. Some patchy infiltrates present retrocardiac region of the left base. There is ossification of costochondral cartilages. Previous cholecystectomy clips are present. Mediastinum is intact. No pneumothorax Impression: 1. Cardiomegaly with low volume effusions 2. Pneumonic infiltrate suspected in the left base 3. Previous cholecystectomy PROCEDURE INTERPRETED AT [facility] DEPARTMENT OF RADIOLOGY Final Report Signed by: Dr. Mark Sheffield
[2017-02-21] MEDS: INSULIN LISPRO 100 UNIT/ML SUBCUT SCH ×2 (08:12→12:13)
[2017-02-21] MEDS: PHENAZOPYRIDINE 95 MG TABLET PO SCH ×2 (09:44→12:13)
[2017-02-21] MEDS: AZTREONAM 1,000 MG in SODIUM CHLORIDE 0.9% 100 ML IV SCH (09:44)
[2017-02-21] MEDS: PANTOPRAZOLE 40 MG VIAL IV SCH (09:44)
[2017-02-21 12:20] VITALS: BP 125/67
[2017-02-21] MEDS: ONDANSETRON 4 MG/2 ML VIAL IV PRN (12:23)
--- NOTE | 2017-02-21 12:23 | Discharge Summary ---
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 She was found to have a fever up to 102.4. Patient also has been having 3 days of some left flank pain which she described as constant pressure. Now, it feels like spasms. She had some chills as well. She denied any n/v/diarrhea/decreased oral intake. She stated that she has a history of recurrent nephrolithiasis and has had previous lithotripsy procedures. She sees Dr. Rossi of urology but missed her December 2016 appointment. In the emergency room she was diagnosed with acute pyelonephritis with sepsis and UTI, that were all present on admission. Due to penicillin allergy she was started on IV aztreonam, and admitted. Subsequent urine cultures grew Klebsiella which was pansensitive. Patient was found to have left obstructive uropathy due to ureteral calculus. Dr. Rossi some neurology was following. Due to left-hydronephrosis he required a stent placement by urology. He also had problems with bacterial pneumonia and small pleural effusion while in the hospital associated with acute acute hypoxemic respiratory failure, that improved with aztreonam as well. She is not feeling much better. She is not requiring any supplemental oxygen. Her flank pain and fever has resolved. Atelectasis is also improved with incentive spirometry. She also has mild diet-controlled diabetes as her hemoglobin A1c was 6.9 She has reached maximal hospital benefit and being discharged home in an improved and stable condition. She will continue to follow with Dr. Rossi for her recurrent nephrolithiasis. Discharge note and work excuse were provided. - Time spent with patient Time with patient DS: Less than 30 minutes Diagnosis - Discharge Diagnosis (1) Pyelonephritis Status: Resolved Discharge Plan - Discharge Data Condition at Discharge: Stable Discharge Diet: diabetic diet Activity: resume usual activities as tolerated Hygiene: no restrictions Driving: no restrictions Contact your physician if you experience:: fever over 101, Nausea/Vomiting, Shortness of breath, pain uncontrolled by pain medications - Discharge Medications New Acetaminophen Tab [Tylenol Tab] 650 mg PO Q6H PRN #30 tablet PRN Reason: Fever, Headache, Mild Pain Levofloxacin Tab [Levaquin Tab] 500 mg PO DAILY #10 tablet Tamsulosin [Flomax] 0.4 mg PO BEDTIME #30 capsule Continue Clorazepate [Tranxene] 3.75 mg PO BID PRN PRN Reason: Anxiety Dextroamphetamine/Amphetamine [Adderall 10 mg Tablet] 20 mg PO BID@0700,1400 Ketorolac Tab [Toradol Tab] 10 mg PO Q6H PRN #20 tablet PRN Reason: Headache Escitalopram [Lexapro] 20 mg PO QAM Ondansetron Tab [Zofran Tab] 4 mg PO Q6HR PRN PRN Reason: Nausea metFORMIN [Glucophage] 850 mg PO DAILY W/BREAKFAST - Follow Up or Referral - Forms/Instructions Exam - Constitutional Vitals: Period Temp Pulse Resp BP Sys/Rayo Pulse Ox Last 24 Hr 97.3 F-98.0 F 66-98 14-20 97-129/48-76 90-100 Exam: General: No Acute Distress HEENT: Normocephalic, atraumatic, Extra ocular movements intact Neck: Supple, No JVD Chest: Clear to auscultation B/L CV: S1 + S2 audible without murmur, gallop or rub Abd: soft, NT, Non-distended, BS + Ext: No edema Skin: No purpura, bruising or rash Rheumatologic: No Joint deformities Neurologic: Strength 5/5 all extremities, no gross sensory deficits Discharge Results Procedures and tests throughout hospitalization: Pending Orders 02/17/17 20:16 Blood Culture Stat Labs on day of discharge: Labs from last 24 hours 02/21/17 02/21/17 02/20/17 11:08 07:16 19:14 POC Glucose 219 H 145 H 142 H 02/20/17 02/20/17 02/20/17 16:07 12:31 11:11 POC Glucose 190 H 167 H 107 H Preliminary micro results at discharge 02/17/17 20:16 Blood Culture - Preliminary Blood No growth at 3 days 02/17/17 20:02 Blood Culture - Preliminary Blood No growth at 3 days DS: Provider Date of admission: 02/17/17 23:19 Primary care physician: . No PCP Attending physician on admission: Kodak Mayo MD Consults: 02/17/17 23:22 Consult to Physician [CONS] Routine Comment: 5.5mm ureteral stone Consulting Provider: Sarath Rossi When should Consulting Provider be notified: In am Person Notified: MD aware 02/18/17 07:10 Consult to Anesthesiology [CONS] Routine Consulting Provider: Reason for Anesthesiology: Pre-op Clearance 02/20/17 09:52 Consult to Physical Therapy [CONS] Routine Reason for Physical Therapy: Evaluate and Treat Consult Comment: will need o2 if sat is low Discharging clinician: Beth Omalley MD
[2017-02-21] MEDS: MORPHINE 2 MG/1 ML SYRINGE IV PRN (12:24)
[2017-02-21] MEDS ORDERED: LEVOFLOXACIN 500 MG TABLET PO SCH (12:30)
--- NOTE | 2017-02-21 12:55 | Urology Progress Note ---
Urology - PN: Subj Interval history: Feeling better. She is being discharged home. I will make her an appointment see me in 1 week with a KUB. Exam - Constitutional Vitals: Period Temp Pulse Resp BP Sys/Rayo Pulse Ox Last 24 Hr 97.3 F-98.0 F 64-98 14-20 97-129/48-76 90-100 Results - Labs CBC & BMP: 02/20/17 06:03 02/20/17 06:03
== END 2017-02-21 15:21 | disposition home or self-care (01) | DRG 871 ==
LOC: N.ED 18:14 → N.EDINP 23:19 → SUATTDRO 23:19 → N.5E 23:58
PROVIDERS: ADMIT Internal Medicine; ATTEND Hospitalist